=== PATIENT | male | born 1995 | race Caucasian/White ===

== ENCOUNTER 2025-05-25 02:16 | Emergency (ER) | payer MEDICAID, SELFPAY ==
[2025-05-25 02:33] VITALS: BP 133/81; PULSE 99; RESP 18; TEMP 36.6; O2SAT 96
[2025-05-25 02:34] VITALS: BMI 27.4
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
== END 2025-05-25 04:19 ==
LOC: SERX 03:00
PROVIDERS: Emergency Provider Emergency Medicine
DX: Z02.89 Encounter for other administrative examinations (principal); S01.511A Laceration without foreign body of lip, initial encounter; Y04.0XXA Assault by unarmed brawl or fight, initial encounter; S01.81XA Laceration without foreign body of other part of head, initial encounter
CPT/HCPCS: 12011; 99283